=== PATIENT | male | born 1975 | race Caucasian/White ===

== ENCOUNTER 2018-05-17 02:59 | Emergency (ER) | payer SELFPAY ==
[~2018-05-17] VITALS: Ht 182.9 cm; Wt 94.5 kg
[2018-05-17 03:09] VITALS: BP 146/90
--- NOTE | 2018-05-17 03:10 | NUR ---
TO BED # 4 AMB, REPORT GIVEN TO SHARONA BENITEZ
--- NOTE | 2018-05-17 03:17 | NUR ---
PT PRESENTED ER WITH C/O PAIN TO THE EPIGASTRIC REGION X 1 MONTH INTERMITTENT. PT HAS HAD SOME N/V AND DIARRHEA AT TIMES. PT STATED HE HAS HAD FEVERS OFF AND ON.NO FEVER AT THIS TIME IN ER. BOWL SOUNDS ACTIVE IN ALL 4 Q. PT IS TAKING IBUPROFEN FOR PAIN. PAIN LEVEL IS 10/10. KNA AND NO PREVIOUS MEDICAL HX. AAOX4 WITH EVEN AND STEADY GAIT; VSS; PATIENT POSITIONED FOR COMFORT; HOB ELEVATED; BEDRAILS UP X2; BED DOWN. ER MD MADE AWARE OF PT STATUS.
--- NOTE | 2018-05-17 03:26 | NUR ---
Dr. Oakley evaluating patient at bedside.
[2018-05-17] MEDS ORDERED: DICYCLOMINE HCL LIQUID 20 MG, ALUMINUM HYD/MAG/SIMETHICONE 30 ML, LIDOCAINE VISCOUS 2% ... PO ONE ×3 (03:40)
[2018-05-17 03:46] VITALS: BP 146/90
--- NOTE | 2018-05-17 03:46 | NUR ---
Patient discharged with v/s stable. Written and verbal after care instructions given and explained to parent/guardian. Parent/Guardian verbalized understanding. Ambulatorysteady gait. All questions addressed prior to discharge. Advised to follow up with PMD. PT left without D/C papers.
== END 2018-05-17 03:46 | disposition home or self-care (01) ==
LOC: MED 02:59
DX: K21.9 Gastro-esophageal reflux disease without esophagitis (principal); F17.290 Nicotine dependence, other tobacco product, uncomplicated
CPT/HCPCS: 99281